=== PATIENT | male | born 1970 | race Caucasian/White ===

== ENCOUNTER 2024-09-21 10:19 | Inpatient (IN) | payer OTHER ==
[~2024-09-21] VITALS: Ht 165.1 cm; Wt 74.8 kg
[2024-09-21 10:21] VITALS: BP 144/97; PULSE 85; RESP 20; TEMP 98.1; O2SAT 92
[2024-09-21 11:13] LABS: BASOPHILS % (AUTO) 0.4 % (0.0-2.0); EOSINOPHILS # (AUTO) 0.3 K/uL (0-0.4); EOSINOPHILS % (AUTO) 3.9 % (0.0-4.0); HEMATOCRIT 32.1 % (36-52); HEMOGLOBIN 10.4 g/dL (12.0-18.0); LYMPHOCYTES # (AUTO) 1.2 K/uL (2.0-11.5); LYMPHOCYTES % (AUTO) 16.3 % (20.5-51.1); MEAN CORPUSCULAR HEMOGLOBIN 31 pg (27-31); MEAN CORPUSCULAR HGB CONC 32 g/dL (33-37); MEAN CORPUSCULAR VOLUME 95.4 fL (80-94); MONOCYTES # (AUTO) 0.6 K/uL (0.8-1.0); MONOCYTES % (AUTO) 7.8 % (1.7-9.3); NEUTROPHILS # (AUTO) 5.4 K/uL (1.8-7.7); NEUTROPHILS % (AUTO) 71.6 % (42.2-75.2); PLATELET COUNT (AUTO) 322 K/uL (140-450); RED BLOOD CELL COUNT(AUTO) 3.36 MIL/uL (4.20-6.10); RED CELL DISTRIBUTION WIDTH 15.7 % (11.6-13.7); WHITE BLOOD COUNT (AUTO) 7.6 K/uL (4.8-10.8)
[2024-09-21 11:42] LABS: BLOOD GAS PH 7.378 (7.350-7.450)
[2024-09-21 11:43] LABS: BLOOD GAS BASE EXCESS 5.1 mmol/L (-2.0-3.0); BLOOD GAS HCO3 31.3 mmol/L (21.0-28.0); BLOOD GAS PCO2 54.4 mmHg (35.0-48.0); BLOOD GAS PO2 27.1 mmHg (83.0-108.0)
[2024-09-21 11:44] LABS: BLOOD GAS O2 SAT% 43.2 % (94.0-98.0)
[2024-09-21 11:55] LABS: ALANINE AMINOTRANSFERASE 13 U/L (12-78); ALBUMIN 2.6 g/dL (3.4-5.0); ALKALINE PHOSPHATASE 141 U/L (50-136); ANION GAP 11.1 (8-16); ASPARTATE AMINOTRANSFERASE 11 U/L (15-37); BILIRUBIN,DIRECT 0.2 mg/dL (0.0-0.3); CALCIUM 9.2 mg/dL (8.5-10.1); CARBON DIOXIDE 34.4 mmol/L (21-32); POTASSIUM 3.5 mmol/L (3.5-5.1); TOTAL BILIRUBIN 0.6 mg/dL (0.0-1.0); TOTAL PROTEIN, SERUM 8.3 g/dL (6.4-8.2)
[2024-09-21 11:59] LABS: CREATININE 6.8 mg/dL (0.6-1.3)
[2024-09-21 12:01] LABS: INR 1.2 (0.8-1.2); PARTIAL THROMBOPLASTIN TIME 33.2 secs (22-35.6); PROTHROMBIN TIME 12.5 secs (10.8-13.4)
[2024-09-21 12:43] LABS: FLU A ANTIGEN negative (NEGATIVE); FLU B ANTIGEN negative (NEGATIVE)
[2024-09-21] MEDS ORDERED: MORPHINE SULFATE 4 MG/ML SYR IVP PRN (13:05)
[2024-09-21] MEDS ORDERED: cefTRIAXone 1,000 MG VIAL ONE (13:16)
[2024-09-21] MEDS ORDERED: AZITHROMYCIN 500 MG INJ VIAL IV ONE (13:29)
[2024-09-21] MEDS: AZITHROMYCIN 500 MG in DEXTROSE 5% 250 ML IV SCH (13:36)
[2024-09-21 16:22] VITALS: PULSE 68; RESP 20
[2024-09-21 16:56] VITALS: PULSE 92
[2024-09-21] MEDS: ONDANSETRON 4 MG/2 ML VIAL IVP PRN (18:07)
[2024-09-21 20:00] VITALS: BP 146/78; PULSE 104; PULSE 111; RESP 20; TEMP 98; O2SAT 94; O2SAT 97
[2024-09-21] MEDS: ACETAMINOPHEN 325 MG TAB PO PRN (20:23)
[2024-09-21 20:25] VITALS: PULSE 102; RESP 18; O2SAT 100
[2024-09-21] MEDS: ALBUTEROL SULFATE/IPRATROPIU 3 ML SOL IH SCH (20:25)
[2024-09-21] MEDS: methylPREDNISolone SS 40 MG/ML VIAL IVP SCH (21:01)
[2024-09-21] MEDS: FUROSEMIDE 100 MG/10 ML VIAL IVP SCH (21:01)
[2024-09-22] VITALS (11 sets, daily range): BP systolic 133–154; BP diastolic 72–78; PULSE 69–103; RESP 17–22; TEMP 97.1–98.6; O2SAT 90–99
[2024-09-22 05:54] LABS: BASOPHILS % (AUTO) 0.1 % (0.0-2.0); HEMATOCRIT 32.6 % (36-52); HEMOGLOBIN 10.5 g/dL (12.0-18.0); LYMPHOCYTES # (AUTO) 0.2 K/uL (2.0-11.5); LYMPHOCYTES % (AUTO) 1.9 % (20.5-51.1); MEAN CORPUSCULAR HEMOGLOBIN 31 pg (27-31); MEAN CORPUSCULAR HGB CONC 32 g/dL (33-37); MEAN CORPUSCULAR VOLUME 95.1 fL (80-94); MONOCYTES # (AUTO) 0.1 K/uL (0.8-1.0); MONOCYTES % (AUTO) 1.1 % (1.7-9.3); NEUTROPHILS # (AUTO) 9.4 K/uL (1.8-7.7); NEUTROPHILS % (AUTO) 96.9 % (42.2-75.2); PLATELET COUNT (AUTO) 337 K/uL (140-450); RED BLOOD CELL COUNT(AUTO) 3.42 MIL/uL (4.20-6.10); RED CELL DISTRIBUTION WIDTH 15.2 % (11.6-13.7); WHITE BLOOD COUNT (AUTO) 9.7 K/uL (4.8-10.8)
[2024-09-22 07:26] LABS: ANION GAP 15.3 (8-16); CALCIUM 9.6 mg/dL (8.5-10.1); CARBON DIOXIDE 28.8 mmol/L (21-32); POTASSIUM 4.1 mmol/L (3.5-5.1)
[2024-09-22 07:28] LABS: CREATININE 4.5 mg/dL (0.6-1.3)
[2024-09-22] MEDS: DOCUSATE SOD/SENNA 50/8.6 MG 1 TAB ONE (07:51)
[2024-09-22] MEDS: DOCUSATE SOD/SENNA 50/8.6 MG 1 TAB PO SCH (09:00)
[2024-09-22] MEDS: MEDS-TO-BEDS MC SCH (21:02)
[2024-09-23] VITALS (10 sets, daily range): BP systolic 117–149; BP diastolic 30–82; PULSE 88–104; RESP 16–20; TEMP 97–98.7; O2SAT 89–98
[2024-09-23 05:32] LABS: HEMATOCRIT 33.2 % (36-52); HEMOGLOBIN 10.6 g/dL (12.0-18.0); LYMPHOCYTES # (AUTO) 0.4 K/uL (2.0-11.5); MEAN CORPUSCULAR HEMOGLOBIN 30 pg (27-31); MEAN CORPUSCULAR HGB CONC 32 g/dL (33-37); MEAN CORPUSCULAR VOLUME 94.7 fL (80-94); MONOCYTES # (AUTO) 0.1 K/uL (0.8-1.0); MONOCYTES % (AUTO) 0.7 % (1.7-9.3); NEUTROPHILS # (AUTO) 9.9 K/uL (1.8-7.7); NEUTROPHILS % (AUTO) 95.3 % (42.2-75.2); PLATELET COUNT (AUTO) 351 K/uL (140-450); RED CELL DISTRIBUTION WIDTH 15.5 % (11.6-13.7); WHITE BLOOD COUNT (AUTO) 10.4 K/uL (4.8-10.8)
[2024-09-23 06:52] LABS: CALCIUM 9.6 mg/dL (8.5-10.1); CARBON DIOXIDE 30.1 mmol/L (21-32); CREATININE 3.9 mg/dL (0.6-1.3); POTASSIUM 4.1 mmol/L (3.5-5.1)
[2024-09-23] MEDS: ONDANSETRON 4 MG/2 ML VIAL IVP SCH (11:43)
[2024-09-23] MEDS ORDERED: ALGINATE DRESSING MC PRN (13:55)
[2024-09-24] VITALS (9 sets, daily range): BP systolic 126–134; BP diastolic 31; PULSE 84–104; RESP 16–20; TEMP 97.8–98; O2SAT 92–97
[2024-09-24 05:31] LABS: BASOPHILS % (AUTO) 0.1 % (0.0-2.0); HEMATOCRIT 32.5 % (36-52); HEMOGLOBIN 10.5 g/dL (12.0-18.0); LYMPHOCYTES # (AUTO) 0.4 K/uL (2.0-11.5); LYMPHOCYTES % (AUTO) 3.2 % (20.5-51.1); MEAN CORPUSCULAR HEMOGLOBIN 30 pg (27-31); MEAN CORPUSCULAR HGB CONC 32 g/dL (33-37); MEAN CORPUSCULAR VOLUME 94.3 fL (80-94); MONOCYTES # (AUTO) 0.4 K/uL (0.8-1.0); MONOCYTES % (AUTO) 2.9 % (1.7-9.3); NEUTROPHILS # (AUTO) 11.7 K/uL (1.8-7.7); NEUTROPHILS % (AUTO) 93.8 % (42.2-75.2); PLATELET COUNT (AUTO) 343 K/uL (140-450); RED BLOOD CELL COUNT(AUTO) 3.44 MIL/uL (4.20-6.10); RED CELL DISTRIBUTION WIDTH 15.4 % (11.6-13.7); WHITE BLOOD COUNT (AUTO) 12.5 K/uL (4.8-10.8)
[2024-09-24 06:12] LABS: CALCIUM 9.8 mg/dL (8.5-10.1); CARBON DIOXIDE 28.9 mmol/L (21-32); POTASSIUM 3.9 mmol/L (3.5-5.1)
[2024-09-24 06:16] LABS: CREATININE 5.6 mg/dL (0.6-1.3)
[2024-09-24] MEDS: VIT-B COMP/VIT-C/FOLIC ACID 1 TAB PO SCH (08:39)
[2024-09-24] MEDS ORDERED: FURO-570 PO (11:19)
[2024-09-24] MEDS ORDERED: CEFD300C3 PO (11:19)
[2024-09-24] MEDS ORDERED: ACET500T99 PO (11:19)
[2024-09-24] MEDS ORDERED: ALBU0.0912 INH (11:19)
[2024-09-24] MEDS: ALGINATE DRESSING MC SCH (13:00)
[2024-09-24] MEDS: levETIRAcetam 500 MG TAB PO SCH (14:15)
[2024-09-24] MEDS ORDERED: DEXTROSE 50% 50 ML SYR IVP PRN (16:45)
[2024-09-24] MEDS: BLOOD GLUCOSE MONITORING 1 DEV DEV FS SCH (17:30)
[2024-09-24] MEDS: INSULIN LISPRO SLIDING SCALE 100 UNITS/ML VIAL SUBQ PRN (17:33)
[2024-09-25] VITALS (8 sets, daily range): BP systolic 123–151; BP diastolic 53–78; PULSE 85–108; RESP 16–19; TEMP 96.8–97.9; O2SAT 92–99
[2024-09-25] MEDS: HYDROcodone/APAP 5/325 MG 1 TAB TAB PO PRN (00:16)
[2024-09-25 14:02] LABS: BASOPHILS # (AUTO) 0.1 K/uL (0.00-0.22); BASOPHILS % (AUTO) 0.8 % (0.0-2.0); HEMATOCRIT 34.7 % (36-52); LYMPHOCYTES # (AUTO) 0.5 K/uL (2.0-11.5); MEAN CORPUSCULAR HEMOGLOBIN 30 pg (27-31); MEAN CORPUSCULAR HGB CONC 32 g/dL (33-37); MEAN CORPUSCULAR VOLUME 94.6 fL (80-94); MONOCYTES # (AUTO) 0.4 K/uL (0.8-1.0); MONOCYTES % (AUTO) 3.3 % (1.7-9.3); NEUTROPHILS # (AUTO) 11.8 K/uL (1.8-7.7); NEUTROPHILS % (AUTO) 91.6 % (42.2-75.2); PLATELET COUNT (AUTO) 349 K/uL (140-450); RED BLOOD CELL COUNT(AUTO) 3.67 MIL/uL (4.20-6.10); RED CELL DISTRIBUTION WIDTH 15.6 % (11.6-13.7); WHITE BLOOD COUNT (AUTO) 12.8 K/uL (4.8-10.8)
[2024-09-25 14:10] LABS: LYMPHOCYTES % (AUTO) 4.3 % (20.5-51.1)
[2024-09-25 14:11] LABS: ANION GAP 17.1 (8-16); CALCIUM 9.4 mg/dL (8.5-10.1); CARBON DIOXIDE 24.5 mmol/L (21-32); POTASSIUM 4.6 mmol/L (3.5-5.1)
[2024-09-25 14:18] LABS: CREATININE 5.6 mg/dL (0.6-1.3)
[2024-09-26] VITALS (9 sets, daily range): BP systolic 118–140; BP diastolic 62–85; PULSE 85–98; RESP 16–20; TEMP 97.2–97.3; O2SAT 94–99
[2024-09-26 06:19] LABS: BASOPHILS % (AUTO) 0.1 % (0.0-2.0); EOSINOPHILS # (AUTO) 0.1 K/uL (0-0.4); HEMATOCRIT 34.7 % (36-52); HEMOGLOBIN 11.2 g/dL (12.0-18.0); LYMPHOCYTES # (AUTO) 1.5 K/uL (2.0-11.5); LYMPHOCYTES % (AUTO) 13.3 % (20.5-51.1); MEAN CORPUSCULAR HEMOGLOBIN 30 pg (27-31); MEAN CORPUSCULAR HGB CONC 32 g/dL (33-37); MEAN CORPUSCULAR VOLUME 94.4 fL (80-94); MONOCYTES # (AUTO) 0.7 K/uL (0.8-1.0); MONOCYTES % (AUTO) 6.1 % (1.7-9.3); NEUTROPHILS # (AUTO) 9.2 K/uL (1.8-7.7); NEUTROPHILS % (AUTO) 79.5 % (42.2-75.2); PLATELET COUNT (AUTO) 341 K/uL (140-450); RED BLOOD CELL COUNT(AUTO) 3.67 MIL/uL (4.20-6.10); RED CELL DISTRIBUTION WIDTH 15.9 % (11.6-13.7); WHITE BLOOD COUNT (AUTO) 11.6 K/uL (4.8-10.8)
[2024-09-26 06:48] LABS: CALCIUM 9.2 mg/dL (8.5-10.1); CARBON DIOXIDE 24.4 mmol/L (21-32); POTASSIUM 4.4 mmol/L (3.5-5.1)
[2024-09-26 07:04] LABS: CREATININE 6.1 mg/dL (0.6-1.3)
[2024-09-26] MEDS: SEVELAMER CARBONATE 800 MG TAB PO SCH (16:25)
[2024-09-26] MEDS: ISOSORBIDE DINITRATE 20 MG TAB PO SCH (20:48)
[2024-09-26] MEDS: METOPROLOL 50 MG TAB PO SCH (20:49)
[2024-09-26] MEDS: hydrALAZINE 25 MG TAB PO SCH (20:49)
[2024-09-27] VITALS (9 sets, daily range): BP systolic 121–155; BP diastolic 72–82; PULSE 82–96; RESP 16–22; TEMP 96.8–97.1; O2SAT 93–98
[2024-09-27 05:46] LABS: HEMATOCRIT 35.3 % (36-52); HEMOGLOBIN 11.3 g/dL (12.0-18.0); MEAN CORPUSCULAR HEMOGLOBIN 30 pg (27-31); MEAN CORPUSCULAR HGB CONC 32 g/dL (33-37); MEAN CORPUSCULAR VOLUME 93.9 fL (80-94); PLATELET COUNT (AUTO) 337 K/uL (140-450); RED BLOOD CELL COUNT(AUTO) 3.76 MIL/uL (4.20-6.10); RED CELL DISTRIBUTION WIDTH 15.8 % (11.6-13.7)
[2024-09-27 06:02] LABS: ALBUMIN 2.6 g/dL (3.4-5.0); CALCIUM 8.9 mg/dL (8.5-10.1); TOTAL BILIRUBIN 0.4 mg/dL (0.0-1.0); TOTAL PROTEIN, SERUM 6.8 g/dL (6.4-8.2)
[2024-09-27 07:14] LABS: EOSINOPHILS % (MANUAL) 5 % (0-4)
[2024-09-27 07:15] LABS: LYMPHOCYTES % (MANUAL) 14 % (20-46); MONOCYTES % (MANUAL) 7 % (5-12)
[2024-09-27 07:19] LABS: PLATELET ESTIMATE ADEQUATE
[2024-09-27] MEDS: ATORVASTATIN 20 MG TAB PO SCH (08:51)
[2024-09-27] MEDS: CLOPIDOGREL 75 MG TAB PO SCH (08:52)
[2024-09-27] MEDS: amLODIPine 5 MG TAB PO SCH (08:52)
[2024-09-27] MEDS: CLOTRIMAZOLE 1% 30 GM CRM TUBE TP SCH (21:26)
[2024-09-28 01:38] VITALS: O2SAT 95
[2024-09-28 04:00] VITALS: BP 143/57; PULSE 78; RESP 18; TEMP 96.5; O2SAT 96
[2024-09-28 07:08] LABS: BASOPHILS % (AUTO) 0.3 % (0.0-2.0); HEMOGLOBIN 11.3 g/dL (12.0-18.0); MONOCYTES # (AUTO) 0.6 K/uL (0.8-1.0)
[2024-09-28 07:12] LABS: EOSINOPHILS # (AUTO) 0.4 K/uL (0-0.4); EOSINOPHILS % (AUTO) 3.1 % (0.0-4.0); HEMATOCRIT 35.4 % (36-52); LYMPHOCYTES # (AUTO) 1.3 K/uL (2.0-11.5); LYMPHOCYTES % (AUTO) 9.3 % (20.5-51.1); MEAN CORPUSCULAR HEMOGLOBIN 30 pg (27-31); MEAN CORPUSCULAR HGB CONC 32 g/dL (33-37); MEAN CORPUSCULAR VOLUME 93.9 fL (80-94); MONOCYTES % (AUTO) 4.2 % (1.7-9.3); NEUTROPHILS # (AUTO) 11.9 K/uL (1.8-7.7); NEUTROPHILS % (AUTO) 83.1 % (42.2-75.2); PLATELET COUNT (AUTO) 313 K/uL (140-450); RED BLOOD CELL COUNT(AUTO) 3.77 MIL/uL (4.20-6.10); RED CELL DISTRIBUTION WIDTH 16.3 % (11.6-13.7); WHITE BLOOD COUNT (AUTO) 14.3 K/uL (4.8-10.8)
[2024-09-28 07:27] VITALS: PULSE 81; RESP 18; O2SAT 95
[2024-09-28 07:28] LABS: ALBUMIN 2.7 g/dL (3.4-5.0); ANION GAP 16.4 (8-16); CALCIUM 8.7 mg/dL (8.5-10.1); CARBON DIOXIDE 25.7 mmol/L (21-32); POTASSIUM 5.1 mmol/L (3.5-5.1); TOTAL BILIRUBIN 0.4 mg/dL (0.0-1.0); TOTAL PROTEIN, SERUM 6.9 g/dL (6.4-8.2)
[2024-09-28 07:31] LABS: CREATININE 6.2 mg/dL (0.6-1.3)
[2024-09-28 08:00] VITALS: BP 144/80; PULSE 86; RESP 18; TEMP 97.3; O2SAT 98
[2024-09-28 12:35] VITALS: PULSE 87; RESP 18; O2SAT 95
[2024-09-28 16:00] VITALS: BP 122/72; PULSE 80; RESP 18; TEMP 97.6; O2SAT 98
== END 2024-09-28 17:25 | disposition home health service (06) | DRG 194 ==
LOC: MED 10:19 → MTU 13:05 → MMU 13:50
PROVIDERS: ADMIT Student in an Organized Health Care Education/Training Program; ATTEND Student in an Organized Health Care Education/Training Program
PROC: 5A1D70Z Performance of Urinary Filtration, Intermittent, Less than 6 Hours Per Day (ICD-10-PCS; 2024-09-21)
PROC: 5A1D70Z Performance of Urinary Filtration, Intermittent, Less than 6 Hours Per Day (ICD-10-PCS; 2024-09-23)
PROC: 5A1D70Z Performance of Urinary Filtration, Intermittent, Less than 6 Hours Per Day (ICD-10-PCS; principal; 2024-09-24)
PROC: 5A1D70Z Performance of Urinary Filtration, Intermittent, Less than 6 Hours Per Day (ICD-10-PCS; 2024-09-26)
DX: I13.2 Hypertensive heart and chronic kidney disease with heart failure and with stage 5 chronic kidney disease, or end stage renal disease (principal); J96.01 Acute respiratory failure with hypoxia; R65.11 Systemic inflammatory response syndrome (SIRS) of non-infectious origin with acute organ dysfunction; E44.0 Moderate protein-calorie malnutrition; D63.1 Anemia in chronic kidney disease; E87.1 Hypo-osmolality and hyponatremia; I69.354 Hemiplegia and hemiparesis following cerebral infarction affecting left non-dominant side; I50.43 Acute on chronic combined systolic (congestive) and diastolic (congestive) heart failure; N18.6 End stage renal disease; Z20.822 Contact with and (suspected) exposure to COVID-19; Z99.2 Dependence on renal dialysis; Z93.1 Gastrostomy status; Z68.1 Body mass index [BMI] 19.9 or less, adult
CPT/HCPCS: 36415; 36600; 70450; 71045; 80048; 80053; 80076; 82803; 82948; 83036; 83735; 83880; 84484; 85025; 85610; 85730; 87081; 90935; 93005; 94640; 99285; J0456; J0696; J1644; J1815; J1940; J2405; J2920; J7060; Q0163